=== PATIENT | female | born 1970 | race American Indian/Alaskan Native ===

== ENCOUNTER 2018-04-26 13:49 | Emergency (ER) | payer SELFPAY ==
--- NOTE | 2018-04-26 15:53 | Emergency Department Report ---
ED Extremity Problem HPI - General Chief complaint: Shoulder Injury Stated complaint: NECK/SHOULDER PAIN Time Seen by Provider: 04/26/18 15:26 Source: patient Mode of arrival: Ambulatory Limitations: No Limitations - History of Present Illness Initial comments: Is a 47-year-old female who is complaining of left shoulder pain started yesterday. Patient denies any fall or trauma. Patient states there is no chest pain shortness of breath cough cold congestion and fevers chills. Patient states she's had this pain in the past before. Patient states it hurts worse when she is trying to move her shoulder. Severity scale (0 -10): 7 Quality: aching Consistency: constant - Related Data Previous Rx's Medication Instructions Recorded Last Taken Type Benzocaine/Menthol [Cepacol Sore 1 each MM Q4H PRN #18 lozenge 09/21/16 Unknown Rx Throat Lozenge] Ibuprofen [Motrin] 600 mg PO Q8H PRN #25 tablet 09/21/16 Unknown Rx Ibuprofen [Motrin] 800 mg PO Q8HR PRN #20 tablet 04/26/18 Unknown Rx methOCARBAMOL [Robaxin TAB] 500 mg PO Q6H PRN #15 tablet 04/26/18 Unknown Rx traMADol [Ultram] 50 mg PO Q6HR PRN #12 tablet 04/26/18 Unknown Rx Allergies Allergy/AdvReac Type Severity Reaction Status Date / Time No Known Allergies Allergy Unverified 09/21/16 07:35 ED Review of Systems ROS: Stated complaint: NECK/SHOULDER PAIN Other details as noted in HPI Comment: All other systems reviewed and negative ED Past Medical Hx - Past Medical History Previous Medical History?: No - Surgical History Past Surgical History?: Yes Additional Surgical History: x2 - Social History Smoking Status: Never Smoker Substance Use Type: None - Medications Home Medications: Home Medications Medication Instructions Recorded Confirmed Last Taken Type Benzocaine/Menthol [Cepacol Sore 1 each MM Q4H PRN #18 lozenge 09/21/16 Unknown Rx Throat Lozenge] Ibuprofen [Motrin] 600 mg PO Q8H PRN #25 tablet 09/21/16 Unknown Rx Ibuprofen [Motrin] 800 mg PO Q8HR PRN #20 tablet 04/26/18 Unknown Rx methOCARBAMOL [Robaxin TAB] 500 mg PO Q6H PRN #15 tablet 04/26/18 Unknown Rx traMADol [Ultram] 50 mg PO Q6HR PRN #12 tablet 04/26/18 Unknown Rx ED Physical Exam - General Limitations: No Limitations General appearance: alert, in no apparent distress - Head Head exam: Present: atraumatic, normocephalic - Eye Eye exam: Present: normal appearance - ENT ENT exam: Present: mucous membranes moist - Neck Neck exam: Present: normal inspection - Respiratory Respiratory exam: Present: normal lung sounds bilaterally. Absent: respiratory distress - Cardiovascular Cardiovascular Exam: Present: regular rate, normal rhythm. Absent: systolic murmur, diastolic murmur, rubs, gallop - GI/Abdominal GI/Abdominal exam: Present: soft, normal bowel sounds - Extremities Exam Extremities exam: Present: normal inspection, tenderness. Absent: full ROM ( patient's left shoulder shows no crepitus with passive range of motion. Patient is reluctant to move her shoulder secondary to pain. The patient is greatest amount of pain with trying to rotate the shoulder. Neurovascularly intact otherwise. There is no deltoid deformity.) - Back Exam Back exam: Present: normal inspection - Neurological Exam Neurological exam: Present: alert, oriented X3 - Psychiatric Psychiatric exam: Present: normal affect, normal mood - Skin Skin exam: Present: warm, dry, intact, normal color. Absent: rash ED Course Vital Signs 04/26/18 13:58 Temperature 98.2 F Pulse Rate 84 Respiratory 18 Rate Blood Pressure 184/103 O2 Sat by Pulse 99 Oximetry ED Medical Decision Making - Medical Decision Making Patient most likely has a rotator cuff injury. Patient states she does not know why her rotator cuff be hurting she is not getting any activities that she' s done that may have injured the rotator cuff. Patient will be referred to orthopedics to rule out tear Critical care attestation.: If time is entered above; I have spent that time in minutes in the direct care of this critically ill patient, excluding procedure time. ED Disposition Clinical Impression: Rotator cuff arthropathy Qualifiers: Laterality: left Qualified Code(s): M12.812 - Other specific arthropathies, not elsewhere classified, left shoulder Disposition: DC-01 TO HOME OR SELFCARE Is pt being admited?: No Does the pt Need Aspirin: No Condition: Stable Instructions: Rotator Cuff Injury (ED) Referrals: ALVARO VALDEZ MD [Staff Physician] - 3-5 Days Time of Disposition: 15:53
[2018-04-26 16:02] VITALS: BP 176/102
== END 2018-04-26 16:00 | disposition home or self-care (01) ==
LOC: ED 13:49
DX: M12.812 Other specific arthropathies, not elsewhere classified, left shoulder (principal)
CPT/HCPCS: 93005; 93010; 99282